=== PATIENT | male | born 1935 | race Native Hawaiian/Other Pacific Islander ===

== ENCOUNTER 2018-11-25 10:29 | Emergency (ER) | payer MEDICARE ==
[2018-11-25] MEDS ORDERED: DUONEB *Not for PRN Use IH ONE (10:35)
--- NOTE | 2018-11-25 11:34 | Emergency Department Report ---
- General Chief Complaint: Dyspnea/Respdistress Stated Complaint: GILBERTO Time Seen by Provider: 11/25/18 10:55 Source: state epidemiologist Mode of arrival: Ambulatory Limitations: Language Barrier (help desk intern used) - History of Present Illness Initial Comments: 83-year-old male presents to ED with URI symptoms and shortness of breath. She reports onset of cough, runny nose 3 days ago. Today began experiencing shortness of breath with wheezing. The patient denies fever, chest pain. DuoNeb treatment currently in process. MD Complaint: cough, rhinorrhea -: days(s) (3) Severity: moderate Improves With: nothing Worsens With: nothing Associated Symptoms: rhinorrhea, shortness of breath. denies: fever, chills, chest pain - Related Data Previous Rx's Medication Instructions Recorded Last Taken Type ALBUTEROL Inhaler(NF) [VENTOLIN 1 puff IH Q4HR PRN #1 inha 11/25/18 Unknown Rx Inhaler(NF)] Aspirin EC [Aspirin Enteric Coated 81 mg PO QDAY #30 tablet 11/25/18 Unknown Rx TAB] AtorvaSTATin [Lipitor] 40 mg PO QHS #30 tablet 11/25/18 Unknown Rx Benzonatate [Tessalon Perles] 100 mg PO Q8HR PRN #20 capsule 11/25/18 Unknown Rx Furosemide [Lasix TAB] 20 mg PO QDAY #30 tablet 11/25/18 Unknown Rx Lisinopril [Zestril TAB] 2.5 mg PO BID #60 tablet 11/25/18 Unknown Rx Metoprolol [Lopressor TAB] 12.5 mg PO BID #60 tablet 11/25/18 Unknown Rx Allergies Allergy/AdvReac Type Severity Reaction Status Date / Time No Known Allergies Allergy Unverified 11/06/17 09:59 ED Review of Systems ROS: Stated complaint: GILBERTO Other details as noted in HPI Comment: All other systems reviewed and negative Constitutional: denies: chills, fever Respiratory: cough, shortness of breath, wheezing Cardiovascular: denies: chest pain ED Past Medical Hx - Social History Smoking Status: Never Smoker Substance Use Type: None - Medications Home Medications: Home Medications Medication Instructions Recorded Confirmed Last Taken Type ALBUTEROL Inhaler(NF) [VENTOLIN 1 puff IH Q4HR PRN #1 inha 11/25/18 Unknown Rx Inhaler(NF)] Aspirin EC [Aspirin Enteric Coated 81 mg PO QDAY #30 tablet 11/25/18 Unknown Rx TAB] AtorvaSTATin [Lipitor] 40 mg PO QHS #30 tablet 11/25/18 Unknown Rx Benzonatate [Tessalon Perles] 100 mg PO Q8HR PRN #20 capsule 11/25/18 Unknown Rx Furosemide [Lasix TAB] 20 mg PO QDAY #30 tablet 11/25/18 Unknown Rx Lisinopril [Zestril TAB] 2.5 mg PO BID #60 tablet 11/25/18 Unknown Rx Metoprolol [Lopressor TAB] 12.5 mg PO BID #60 tablet 11/25/18 Unknown Rx ED Physical Exam - General Limitations: Language Barrier General appearance: alert, in no apparent distress - Head Head exam: Present: atraumatic, normocephalic - Eye Eye exam: Present: normal appearance - ENT ENT exam: Present: mucous membranes moist - Neck Neck exam: Present: normal inspection - Respiratory Respiratory exam: Present: normal lung sounds bilaterally. Absent: respiratory distress - Cardiovascular Cardiovascular Exam: Present: regular rate, normal rhythm - GI/Abdominal GI/Abdominal exam: Present: soft. Absent: distended, tenderness - Extremities Exam Extremities exam: Present: normal inspection. Absent: pedal edema, calf tenderness - Neurological Exam Neurological exam: Present: alert, oriented X3 - Psychiatric Psychiatric exam: Present: normal affect, normal mood - Skin Skin exam: Present: warm, dry, intact, normal color ED Course Vital Signs 11/25/18 11/25/18 11/25/18 10:33 11:04 11:15 Temperature 97.6 F Pulse Rate 84 Respiratory 24 Rate Blood Pressure 180/92 171/82 Blood Pressure [Left] O2 Sat by Pulse 96 94 92 Oximetry 11/25/18 11/25/18 11/25/18 11:30 11:45 12:50 Temperature Pulse Rate Respiratory Rate Blood Pressure 171/82 152/76 152/76 Blood Pressure [Left] O2 Sat by Pulse 93 93 96 Oximetry 11/25/18 11/25/18 11/25/18 13:00 13:15 13:16 Temperature 98.7 F Pulse Rate 68 Respiratory 20 Rate Blood Pressure 172/83 169/91 Blood Pressure 158/77 [Left] O2 Sat by Pulse 95 95 98 Oximetry 11/25/18 13:19 Temperature Pulse Rate Respiratory 18 Rate Blood Pressure Blood Pressure [Left] O2 Sat by Pulse Oximetry ED Medical Decision Making - Lab Data Result diagrams: 11/25/18 12:09 11/25/18 12:09 - EKG Data -: EKG Interpreted by Me EKG shows normal: sinus rhythm - EKG Data When compared to previous EKG there are: no significant change (compared to 11/06/17) Interpretation: LVH, other (T wave inversion I, aVL, V6) - Radiology Data Radiology results: report reviewed, image reviewed - Medical Decision Making Last admitted 1 yr ago. At that time, pt was diagnosed w/ congestive heart failure. Also had suspicious mass on CT that was biposied. Pt reports that he did f/u with the crutching contractor and was told that the mass was not malignant. Not currently on any of the medications that he was discharged on at this time. Last saw his physician 6 mos ago, but states does not currently have a PCP. Today BNP elevated, however, CXR negative, O2 sats normal. Pt in no resp distress. Feels better following breathing treatment. Patient is stable for discharge home. Does not require inpatient treatment at this time. Will give refill prescriptions for cholesterol, BP, diuretic meds that patient was previously discharged on. Will also give prescription for albuterol inhaler and Tessalon. Outpatient follow-up advised. Return precautions given. - Differential Diagnosis pneumonia, bronchitis, pulm edema, ACS Critical care attestation.: If time is entered above; I have spent that time in minutes in the direct care of this critically ill patient, excluding procedure time. ED Disposition Clinical Impression: Bronchitis Disposition: DC-01 TO HOME OR SELFCARE Is pt being admited?: No Condition: Stable Instructions: Acute Bronchitis (ED) Prescriptions: AtorvaSTATin [Lipitor] 40 mg PO QHS #30 tablet ALBUTEROL Inhaler(NF) [VENTOLIN Inhaler(NF)] 1 puff IH Q4HR PRN #1 inha PRN Reason: Wheezing Aspirin EC [Aspirin Enteric Coated TAB] 81 mg PO QDAY #30 tablet Benzonatate [Tessalon Perles] 100 mg PO Q8HR PRN #20 capsule PRN Reason: Cough Furosemide [Lasix TAB] 20 mg PO QDAY #30 tablet Lisinopril [Zestril TAB] 2.5 mg PO BID #60 tablet Metoprolol [Lopressor TAB] 12.5 mg PO BID #60 tablet Referrals: LAURENT PEREZ MD [Primary Care Provider] - 3-5 Days [facility] [Provider Group] - 3-5 Days [facility] [Provider Group] - 3-5 Days Time of Disposition: 13:58
--- NOTE | 2018-11-25 12:05 | XRay Report ---
CHEST XRAY, 2 VIEWS: History: Cough. Findings: There is mild diffuse interstitial coarsening. The lungs are hyperexpanded but clear. No infiltrate, pleural fluid or pneumothorax is detected. The cardiac silhouette and pulmonary vasculature are within normal limits for technique. The bony thorax is unremarkable. IMPRESSION: Changes consistent with COPD. No acute cardiopulmonary process.
[2018-11-25 12:25] LABS: Basophils % (Auto) 0.6 % (0.0-1.8); Eosinophils # (Auto) 0.2 K/mm3 (0.0-0.4); Eosinophils % (Auto) 1.9 % (0.0-4.3); Hematocrit 46.3 % (35.5-45.6); Hemoglobin 15.1 gm/dl (11.8-15.2); Lymphocytes # (Auto) 1.4 K/mm3 (1.2-5.4); Lymphocytes % (Auto) 17.6 % (13.4-35.0); Mean Corpuscular HGB Conc 33 % (32-34); Mean Corpuscular Volume 80 fl (84-94); Monocytes # (Auto) 1.2 K/mm3 (0.0-0.8); Monocytes % (Auto) 15.3 % (0.0-7.3); Platelet Count 281 K/mm3 (140-440); Red Blood Count 5.82 M/mm3 (3.65-5.03); Red Cell Distribution Width 15.1 % (13.2-15.2)
[2018-11-25 12:49] LABS: BUN/Creatinine Ratio 19; Blood Urea Nitrogen 15 mg/dL (9-20); Calcium 8.8 mg/dL (8.4-10.2); Hemolysis Index 9
[2018-11-25 13:18] VITALS: BP 169/91
[2018-11-25] MEDS ORDERED: LASIX PO ONE (13:20)
== END 2018-11-25 14:33 | disposition home or self-care (01) ==
LOC: ED 10:29
DX: J40 Bronchitis, not specified as acute or chronic (principal)
CPT/HCPCS: 36415; 71046; 80048; 83880; 84484; 85025; 93005; 93010